=== PATIENT | male | born 1985 | race Caucasian/White ===

== ENCOUNTER 2020-01-01 14:37 | Outpatient (CLI) | payer OTHER, SELFPAY | END 2020-01-01 14:38 | disposition home or self-care (01) | LOC: ANHAUDIO 14:39 | DX: H91.93 Unspecified hearing loss, bilateral (principal) | CPT/HCPCS: 92557; 92567 ==

== ENCOUNTER 2020-02-27 12:55 | Outpatient (RCR) | payer OTHER, SELFPAY | END 2020-02-27 23:59 | disposition home or self-care (01) | LOC: ANHAUDIO 12:55 | DX: Z46.1 Encounter for fitting and adjustment of hearing aid (principal) | CPT/HCPCS: V5160; V5261 ==